=== PATIENT | female | born 1965 | race Two or more races ===

== ENCOUNTER 2022-04-15 16:52 | Inpatient (IN) | payer OTHER ==
[~2022-04-15] VITALS: Ht 154.9 cm; Wt 67.1 kg
[2022-04-15] MEDS ORDERED: ATIVAN0.5 M1 (16:59)
[2022-04-16] MEDS ORDERED: FENTANYL1 EAC4 (10:45)
[2022-04-16] MEDS ORDERED: FAMOTIDINE20 MG (10:45)
[2022-04-19] MEDS ORDERED: fentanyl patches TD (13:30)
[2022-04-19] MEDS ORDERED: FAMOTIDINE20 MG PO (13:30)
[2022-04-19] MEDS ORDERED: CLONAZEPAM0.5 MG PO (13:30)
[2022-04-19] MEDS ORDERED: ATIVAN0.5 M1 PO (13:30)
[2022-04-19] MEDS ORDERED: HYOSCYAMINE0.125 M1 SL (13:30)
[2022-04-19] MEDS ORDERED: neurontin PO (13:30)
== END 2022-04-19 22:27 | disposition home or self-care (01) | DRG 331 ==
LOC: ER 16:52 → SURH 20:58
PROVIDERS: ADMIT Surgery; ATTEND Surgery
PROC: 0D1N4Z4 Bypass Sigmoid Colon to Cutaneous, Percutaneous Endoscopic Approach (ICD-10-PCS; principal; 2022-04-16 12:30)
DX: K60.3 Anal fistula (principal); C76.3 Malignant neoplasm of pelvis; C52 Malignant neoplasm of vagina; Z43.3 Encounter for attention to colostomy; Z20.822 Contact with and (suspected) exposure to COVID-19